=== PATIENT | female | born 1980 | race Caucasian/White ===

== ENCOUNTER 2017-01-16 09:47 | Day surgery (SDC) | payer OTHER ==
[~2017-01-16] VITALS: Ht 163.8 cm; Wt 95.0 kg
[~2017-01-16 09:47] MED LIST: ALBUTEROL0.63 MG/3 IH; ALBUTEROL17 G1 IH; PREDNISONE20 MG PO; PROAIR HFA8.5 GM IH; PROVENTIL,2.5 MG/3 M IH
[2017-01-16 10:35] LABS: BASOPHIL COUNT 0.1 K/uL (0-0.1); EOSINOPHIL (%) 1.4 % (0-5); EOSINOPHIL COUNT 0.2 K/uL (0-0.3); IMMATURE GRANULOCYTE (%) 0.4 % (0.0-0.7); IMMATURE GRANULOCYTE COUNT 0.1 K/uL; INSTRUMENT ABS NEUTROPHIL CT 10.4 K/uL; LYMPHOCYTE COUNT 2.8 K/uL (1.0-2.8); MCH 30.6 PG (29.0-34.0); MCV 90.1 FL (83-99); MEAN PLAT.VOLUME 10.3 uM^3 (9.5-12.4); MONOCYTE (%) 6.9 % (3-12); NEUTROPHIL (%) 71.9 % (45-76); NEUTROPHIL COUNT 10.4 K/uL (1.8-6.4); PLATELET COUNT 255 K/uL (156-360); RBC DIS.WIDTH-CV 11.9 % (11.8-14.6); RBC DIS.WIDTH-SD 39.2 % (39-53); RED BLOOD COUNT 4.44 M/uL (3.80-5.20); WHITE BLOOD COUNT 14.4 K/uL (4.1-10.2)
[2017-01-16 11:09] LABS: CHLORIDE 109 mEq/L (99-109); POTASSIUM 3.7 mEq/L (3.7-5.4); SODIUM 140 mEq/L (136-147)
[2017-01-16 11:12] LABS: GLUCOSE 98 mg/dL (70-99)
[2017-01-16 11:13] LABS: ANION GAP 13 MEQ/L (2-14)
[2017-01-16 11:15] LABS: ALKALINE PHOSPHATASE 67 IU/L (3-129); GFR ESTIMATE (CALCULATED) > 59 mL/min/
[2017-01-16 11:16] LABS: UREA NITROGEN (BUN) 9 mg/dL (9-23)
[2017-01-16 11:19] LABS: LIPASE 19 U/L (1.0-51.0)
[2017-01-16 11:47] LABS: ADD MIUA? YES; BILIRUBIN NEGATIVE; BLOOD SMALL; COLOR YELLOW ((YELLOW)); GLUCOSE (STRIP) NEGATIVE; KETONES NEGATIVE; LEUKOCYTES NEGATIVE; NITRITE NEGATIVE; PROTEIN (STRIP) NEGATIVE; SPECIFIC GRAVITY 1.009 (1.000-1.030); UROBILINOGEN 0.2 MG/DL (0.2-1.0)
[2017-01-16 11:49] LABS: BACTERIA RARE /HPF; EPITHELIAL CELLS RARE /HPF; MUCUS TRACE /LPF; RED BLOOD CELLS 0-5 /HPF (0-5); WHITE BLOOD CELLS 0-5 /HPF (0-5)
[2017-01-16] MEDS ORDERED: ENBREL50 MG/1 ML SC (12:34)
[2017-01-16 16:57] VITALS: BP 111/56
[2017-01-16 19:10] VITALS: BP 107/58
[2017-01-17] VITALS (7 sets, daily range): BP systolic 99–114; BP diastolic 54–66
[2017-01-18 03:55] VITALS: BP 119/70
[2017-01-18 08:00] VITALS: BP 105/55
[2017-01-18] MEDS ORDERED: ZOFRAN ODT4 MG PO (10:54)
[2017-01-18] MEDS ORDERED: NORCO 5/3251 TABLET PO (10:54)
== END 2017-01-18 11:47 | disposition home or self-care (01) ==
LOC: EME 09:47 → SDC 13:30 → 2EASTP 15:09 → 2SOUTH 15:09 → 2EASTP 16:53
PROVIDERS: Emergency Medicine
PROC: 0DTJ0ZZ Resection of Appendix, Open Approach (ICD-10-PCS; principal; 2017-01-16)
DX: K35.80 Unspecified acute appendicitis (principal); J45.909 Unspecified asthma, uncomplicated; Z88.0 Allergy status to penicillin
CPT/HCPCS: 74177; 80053; 81003; 83690; 85025; 88304; 94640; 94640 76; 94799; 99202; 99281; 99285; G0378; J0131; J1170; J1650; J1720; J1885; J2250; J2270; J2405; J2710; J3010; J3480; J7030; J7120; S0020

== ENCOUNTER 2017-02-02 13:25 | Emergency (ER) | payer OTHER ==
[~2017-02-02] VITALS: Ht 167.6 cm; Wt 92.2 kg
[~2017-02-02 13:25] MED LIST changes: +ENBREL50 MG/1 ML SC; +NORCO 5/3251 TABLET PO; +ZOFRAN ODT4 MG PO
[2017-02-02 14:43] LABS: HEMATOCRIT 38.9 % (36.0-46.0); MCH 30.7 PG (29.0-34.0); MCHC 34.4 G/DL (30.0-36.0); MEAN PLAT.VOLUME 10.9 uM^3 (9.5-12.4); PLATELET COUNT 297 K/uL (156-360); RBC DIS.WIDTH-CV 11.9 % (11.8-14.6); RBC DIS.WIDTH-SD 38.8 % (39-53); RED BLOOD COUNT 4.37 M/uL (3.80-5.20); WHITE BLOOD COUNT 13.3 K/uL (4.1-10.2)
[2017-02-02 14:57] LABS: CHLORIDE 107 mEq/L (99-109); SODIUM 138 mEq/L (136-147)
[2017-02-02 14:59] LABS: GLUCOSE 102 mg/dL (70-99)
[2017-02-02 15:00] LABS: ANION GAP 13 MEQ/L (2-14)
[2017-02-02 15:01] LABS: TOTAL BILIRUBIN 0.9 mg/dL (0.0-1.0)
[2017-02-02 15:03] LABS: ALKALINE PHOSPHATASE 71 IU/L (3-129); GFR ESTIMATE (CALCULATED) > 59 mL/min/
[2017-02-02 15:04] LABS: UREA NITROGEN (BUN) 8 mg/dL (9-23)
[2017-02-02 15:15] LABS: QUANTITATIVE HCG < 4.0 MIU/ML
[2017-02-02] MEDS ORDERED: OXYCODONE HCL5 MG PO (15:37)
[2017-02-02 15:43] LABS: ADD MIUA? YES; BILIRUBIN NEGATIVE; BLOOD SMALL; COLOR YELLOW ((YELLOW)); GLUCOSE (STRIP) NEGATIVE; KETONES NEGATIVE; LEUKOCYTES TRACE; NITRITE NEGATIVE; PROTEIN (STRIP) NEGATIVE; UROBILINOGEN 0.2 MG/DL (0.2-1.0)
[2017-02-02 16:00] LABS: BACTERIA NONE SEEN /HPF; EPITHELIAL CELLS 1+ /HPF; MUCUS TRACE /LPF; RED BLOOD CELLS 0-5 /HPF (0-5); UCUL ADDED? NO; WHITE BLOOD CELLS 0-5 /HPF (0-5)
[2017-02-02] MEDS ORDERED: ZOFRAN ODT4 MG PO (18:03)
[2017-02-02] MEDS ORDERED: PERCOCET 5/31 TABLET PO (18:03)
[2017-02-02] MEDS ORDERED: AUGMENTIN875 MG PO (18:03)
[2017-02-02 18:27] VITALS: BP 124/80
== END 2017-02-02 18:28 | disposition home or self-care (01) ==
LOC: EME 13:25
DX: T81.4XXA Infection following a procedure, initial encounter (principal); L02.211 Cutaneous abscess of abdominal wall
CPT/HCPCS: 74177; 80053; 81003; 84702; 85027; 94640; 99281; 99284; J2270; J2405; J7030

== ENCOUNTER 2017-07-05 12:54 | Inpatient (IN) | payer OTHER ==
[~2017-07-05] VITALS: Ht 162.6 cm; Wt 92.5 kg
[~2017-07-05 12:54] MED LIST changes: +AUGMENTIN875 MG PO; +OXYCODONE HCL5 MG PO; +PERCOCET 5/31 TABLET PO
[2017-07-05 13:25] LABS: HEMATOCRIT 41.1 % (36.0-46.0); MCH 30.8 PG (29.0-34.0); MCHC 34.8 G/DL (30.0-36.0); MCV 88.4 FL (83-99); MEAN PLAT.VOLUME 9.9 uM^3 (9.5-12.4); PLATELET COUNT 258 K/uL (156-360); RBC DIS.WIDTH-CV 11.9 % (11.8-14.6); RBC DIS.WIDTH-SD 39.1 % (39-53); RED BLOOD COUNT 4.65 M/uL (3.80-5.20); WHITE BLOOD COUNT 10.2 K/uL (4.1-10.2)
[2017-07-05 13:35] LABS: CHLORIDE 105 mEq/L (99-109); SODIUM 136 mEq/L (136-147)
[2017-07-05 13:37] LABS: GLUCOSE 143 mg/dL (70-99)
[2017-07-05 13:38] LABS: ANION GAP 14 MEQ/L (2-14)
[2017-07-05 13:39] LABS: TOTAL BILIRUBIN 0.8 mg/dL (0.0-1.0)
[2017-07-05 13:41] LABS: ALKALINE PHOSPHATASE 83 IU/L (3-129); GFR ESTIMATE (CALCULATED) > 59 mL/min/
[2017-07-05 13:42] LABS: UREA NITROGEN (BUN) 12 mg/dL (9-23)
[2017-07-05 13:44] LABS: LIPASE 42 U/L (1.0-51.0)
[2017-07-05 13:50] LABS: QUANTITATIVE HCG < 4.0 MIU/ML
[2017-07-05 14:18] LABS: D-DIMER ELISA < 150.00 ng/mLDDU (<230)
[2017-07-05 14:45] LABS: ADD MIUA? YES; BILIRUBIN NEGATIVE; BLOOD SMALL; COLOR YELLOW ((YELLOW)); GLUCOSE (STRIP) NEGATIVE; KETONES 20; LEUKOCYTES NEGATIVE; NITRITE NEGATIVE; PROTEIN (STRIP) 30; SPECIFIC GRAVITY 1.016 (1.000-1.030); UROBILINOGEN 0.2 MG/DL (0.2-1.0)
[2017-07-05 14:51] LABS: BACTERIA NONE SEEN /HPF; EPITHELIAL CELLS RARE /HPF; MUCUS TRACE /LPF; RED BLOOD CELLS 0-5 /HPF (0-5); UCUL ADDED? NO; WHITE BLOOD CELLS 0-5 /HPF (0-5)
[2017-07-05] MEDS ORDERED: SINGULAIR10 MG PO (16:52)
[2017-07-05 20:01] VITALS: BP 129/63
[2017-07-05 23:36] VITALS: BP 132/60
[2017-07-06 07:04] LABS: HEMATOCRIT 33.7 % (36.0-46.0); MCH 32.5 PG (29.0-34.0); MEAN PLAT.VOLUME 10.4 uM^3 (9.5-12.4); PLATELET COUNT 192 K/uL (156-360); RBC DIS.WIDTH-CV 12.4 % (11.8-14.6); RBC DIS.WIDTH-SD 42.4 % (39-53); WHITE BLOOD COUNT 6.7 K/uL (4.1-10.2)
[2017-07-06 07:07] LABS: MCV 92.8 FL (83-99); RED BLOOD COUNT 3.63 M/uL (3.80-5.20)
[2017-07-06 07:45] VITALS: BP 110/57
[2017-07-06 11:14] VITALS: BP 111/67
[2017-07-06 12:54] LABS: ANION GAP 6 MEQ/L (2-14); CHLORIDE 108 MEQ/L (99-109); POTASSIUM 4.4 MEQ/L (3.7-5.4); SAMPLE HEMOLYSIS CHECK 0; SAMPLE ICTERIC CHECK 0; SAMPLE LIPEMIA CHECK 0; SODIUM 141 MEQ/L (136-147); TOTAL BILIRUBIN 0.9 MG/DL (0.0-1.0)
[2017-07-06 13:00] LABS: ALKALINE PHOSPHATASE 85 IU/L (3-129); GFR ESTIMATE (CALCULATED) > 59 mL/min/; UREA NITROGEN (BUN) 9 mg/dL (9-23)
[2017-07-06 13:01] LABS: GLUCOSE 88 mg/dL (70-99)
[2017-07-06 19:10] VITALS: BP 159/88
[2017-07-06 23:29] VITALS: BP 135/82
[2017-07-07] VITALS (8 sets, daily range): BP systolic 119–162; BP diastolic 68–95
[2017-07-07 07:32] LABS: HEMATOCRIT 38.3 % (36.0-46.0); MCH 32.4 PG (29.0-34.0); MCHC 34.7 G/DL (30.0-36.0); MCV 93.4 FL (83-99); MEAN PLAT.VOLUME 10.2 uM^3 (9.5-12.4); PLATELET COUNT 211 K/uL (156-360); RBC DIS.WIDTH-CV 12.5 % (11.8-14.6); RBC DIS.WIDTH-SD 43.2 % (39-53); WHITE BLOOD COUNT 11.1 K/uL (4.1-10.2)
[2017-07-07 07:59] LABS: ALKALINE PHOSPHATASE 98 IU/L (3-129); ANION GAP 8 MEQ/L (2-14); CHLORIDE 104 MEQ/L (99-109); GFR ESTIMATE (CALCULATED) > 59 mL/min/; GLUCOSE 125 mg/dL (70-99); POTASSIUM 4.2 MEQ/L (3.7-5.4); SAMPLE HEMOLYSIS CHECK 0; SAMPLE ICTERIC CHECK 0; SAMPLE LIPEMIA CHECK 0; SODIUM 139 MEQ/L (136-147); UREA NITROGEN (BUN) 5 mg/dL (9-23)
[2017-07-07 09:19] LABS: LIPASE 1974 U/L (1.0-51.0)
[2017-07-08 01:31] LABS: HEMATOCRIT 41.3 % (36.0-46.0); MCHC 33.4 G/DL (30.0-36.0); MCV 92.8 FL (83-99); MEAN PLAT.VOLUME 9.9 uM^3 (9.5-12.4); PLATELET COUNT 234 K/uL (156-360); RBC DIS.WIDTH-CV 12.1 % (11.8-14.6); RBC DIS.WIDTH-SD 41.8 % (39-53); RED BLOOD COUNT 4.45 M/uL (3.80-5.20); WHITE BLOOD COUNT 15.1 K/uL (4.1-10.2)
[2017-07-08 01:39] LABS: CHLORIDE 104 mEq/L (99-109); POTASSIUM 3.9 mEq/L (3.7-5.4); SODIUM 139 mEq/L (136-147)
[2017-07-08 01:41] LABS: GLUCOSE 130 mg/dL (70-99)
[2017-07-08 01:42] LABS: ANION GAP 11 MEQ/L (2-14)
[2017-07-08 01:43] LABS: TOTAL BILIRUBIN 0.8 mg/dL (0.0-1.0)
[2017-07-08 01:45] LABS: ALKALINE PHOSPHATASE 101 IU/L (3-129); GFR ESTIMATE (CALCULATED) > 59 mL/min/
[2017-07-08 01:46] LABS: UREA NITROGEN (BUN) 4 mg/dL (9-23)
[2017-07-08 03:49] VITALS: BP 141/77
[2017-07-08 07:47] VITALS: BP 139/73
[2017-07-08 08:44] LABS: LIPASE 1479 U/L (1.0-51.0)
[2017-07-08 11:39] VITALS: BP 132/76
[2017-07-08 15:56] VITALS: BP 131/68
[2017-07-08 19:28] VITALS: BP 128/67
[2017-07-09 00:03] VITALS: BP 117/62
[2017-07-09 04:10] VITALS: BP 129/72
[2017-07-09 06:26] LABS: HEMATOCRIT 37.4 % (36.0-46.0); MCH 31.6 PG (29.0-34.0); MCHC 33.4 G/DL (30.0-36.0); MCV 94.7 FL (83-99); MEAN PLAT.VOLUME 10.2 uM^3 (9.5-12.4); PLATELET COUNT 187 K/uL (156-360); RBC DIS.WIDTH-CV 12.7 % (11.8-14.6); RED BLOOD COUNT 3.95 M/uL (3.80-5.20); WHITE BLOOD COUNT 16.4 K/uL (4.1-10.2)
[2017-07-09 06:53] LABS: ALKALINE PHOSPHATASE 77 IU/L (3-129); ANION GAP 9 MEQ/L (2-14); CHLORIDE 102 MEQ/L (99-109); DIRECT BILIRUBIN 0.6 mg/dL (0.0-0.3); GFR ESTIMATE (CALCULATED) > 59 mL/min/; GLUCOSE 108 mg/dL (70-99); LIPASE 236 U/L (1.0-51.0); SAMPLE HEMOLYSIS CHECK 0; SAMPLE ICTERIC CHECK 0; SAMPLE LIPEMIA CHECK 0; SODIUM 138 MEQ/L (136-147); UREA NITROGEN (BUN) 4 mg/dL (9-23)
[2017-07-09 06:57] LABS: TOTAL BILIRUBIN 1.4 MG/DL (0.0-1.0)
[2017-07-09 07:44] VITALS: BP 119/65
[2017-07-09 12:08] VITALS: BP 123/65
[2017-07-09 17:29] VITALS: BP 115/58
[2017-07-09 19:57] VITALS: BP 130/65
[2017-07-10 00:08] VITALS: BP 127/66
[2017-07-10 03:37] VITALS: BP 120/61
[2017-07-10 06:45] VITALS: BP 127/70
[2017-07-10 07:14] LABS: HEMATOCRIT 35.8 % (36.0-46.0); MCH 31.6 PG (29.0-34.0); MCHC 33.5 G/DL (30.0-36.0); MCV 94.2 FL (83-99); MEAN PLAT.VOLUME 10.6 uM^3 (9.5-12.4); PLATELET COUNT 218 K/uL (156-360); RBC DIS.WIDTH-CV 12.5 % (11.8-14.6); RBC DIS.WIDTH-SD 43.4 % (39-53); WHITE BLOOD COUNT 17.6 K/uL (4.1-10.2)
[2017-07-10 07:42] LABS: ALKALINE PHOSPHATASE 73 IU/L (3-129); ANION GAP 8 MEQ/L (2-14); CHLORIDE 101 MEQ/L (99-109); GFR ESTIMATE (CALCULATED) > 59 mL/min/; GLUCOSE 99 mg/dL (70-99); LIPASE 56 U/L (1.0-51.0); POTASSIUM 3.8 MEQ/L (3.7-5.4); SAMPLE HEMOLYSIS CHECK 0; SAMPLE ICTERIC CHECK 0; SAMPLE LIPEMIA CHECK 0; SODIUM 137 MEQ/L (136-147); TOTAL BILIRUBIN 0.9 MG/DL (0.0-1.0); UREA NITROGEN (BUN) 4 mg/dL (9-23)
[2017-07-10 09:11] LABS: ADD MIUA? YES; BILIRUBIN NEGATIVE; BLOOD MODERATE; COLOR YELLOW ((YELLOW)); GLUCOSE (STRIP) NEGATIVE; KETONES 5; LEUKOCYTES TRACE; NITRITE NEGATIVE; PROTEIN (STRIP) 30; UROBILINOGEN 0.2 MG/DL (0.2-1.0)
[2017-07-10 09:25] LABS: BACTERIA RARE /HPF; EPITHELIAL CELLS RARE /HPF; MUCUS TRACE /LPF
[2017-07-10 15:51] VITALS: BP 121/63
[2017-07-10 23:10] VITALS: BP 118/60
[2017-07-11 06:55] VITALS: BP 119/60
[2017-07-11 07:04] LABS: HEMATOCRIT 34.6 % (36.0-46.0); MCH 30.8 PG (29.0-34.0); MCHC 32.9 G/DL (30.0-36.0); MCV 93.5 FL (83-99); PLATELET COUNT 221 K/uL (156-360); RBC DIS.WIDTH-CV 12.3 % (11.8-14.6); WHITE BLOOD COUNT 16.9 K/uL (4.1-10.2)
[2017-07-11 07:38] LABS: ANION GAP 7 MEQ/L (2-14); CHLORIDE 99 MEQ/L (99-109); GFR ESTIMATE (CALCULATED) > 59 mL/min/; GLUCOSE 102 mg/dL (70-99); POTASSIUM 3.8 MEQ/L (3.7-5.4); SAMPLE HEMOLYSIS CHECK 0; SAMPLE ICTERIC CHECK 0; SAMPLE LIPEMIA CHECK 0; SODIUM 136 MEQ/L (136-147); UREA NITROGEN (BUN) 7 mg/dL (9-23)
[2017-07-11 15:10] VITALS: BP 125/67
[2017-07-11 23:42] VITALS: BP 126/63
[2017-07-12 07:30] VITALS: BP 122/61
[2017-07-12 07:33] LABS: EOSINOPHIL COUNT 0.2 K/uL (0-0.3); HEMATOCRIT 34.4 % (36.0-46.0); IMMATURE GRANULOCYTE (%) 0.8 % (0.0-0.7); IMMATURE GRANULOCYTE COUNT 0.2 K/uL; INSTRUMENT ABS NEUTROPHIL CT 16.7 K/uL; LYMPHOCYTE COUNT 1.3 K/uL (1.0-2.8); MCH 30.3 PG (29.0-34.0); MCHC 33.1 G/DL (30.0-36.0); MCV 91.5 FL (83-99); MEAN PLAT.VOLUME 10.2 uM^3 (9.5-12.4); MONOCYTE (%) 9.8 % (3-12); NEUTROPHIL (%) 81.7 % (45-76); NEUTROPHIL COUNT 16.7 K/uL (1.8-6.4); PLATELET COUNT 266 K/uL (156-360); RBC DIS.WIDTH-CV 12.2 % (11.8-14.6); RBC DIS.WIDTH-SD 41.1 % (39-53); RED BLOOD COUNT 3.76 M/uL (3.80-5.20); WHITE BLOOD COUNT 20.5 K/uL (4.1-10.2)
[2017-07-12 07:58] LABS: ANION GAP 12 MEQ/L (2-14); CHLORIDE 95 MEQ/L (99-109); GFR ESTIMATE (CALCULATED) > 59 mL/min/; GLUCOSE 98 mg/dL (70-99); POTASSIUM 3.9 MEQ/L (3.7-5.4); SAMPLE HEMOLYSIS CHECK 2; SAMPLE ICTERIC CHECK 0; SAMPLE LIPEMIA CHECK 0; SODIUM 135 MEQ/L (136-147); UREA NITROGEN (BUN) 8 mg/dL (9-23)
[2017-07-12 16:07] VITALS: BP 126/65
[2017-07-13 00:22] VITALS: BP 127/59
[2017-07-13 07:23] VITALS: BP 122/63
[2017-07-13 07:43] LABS: EOSINOPHIL (%) 0.7 % (0-5); EOSINOPHIL COUNT 0.1 K/uL (0-0.3); HEMATOCRIT 32.9 % (36.0-46.0); IMMATURE GRANULOCYTE (%) 1.6 % (0.0-0.7); IMMATURE GRANULOCYTE COUNT 0.3 K/uL; LYMPHOCYTE COUNT 1.4 K/uL (1.0-2.8); MCH 31.5 PG (29.0-34.0); MCHC 34.7 G/DL (30.0-36.0); MCV 90.9 FL (83-99); MEAN PLAT.VOLUME 9.9 uM^3 (9.5-12.4); MONOCYTE (%) 9.5 % (3-12); MONOCYTE COUNT 1.9 K/uL (0-0.8); NEUTROPHIL (%) 80.9 % (45-76); PLATELET COUNT 273 K/uL (156-360); RBC DIS.WIDTH-CV 12.4 % (11.8-14.6); RBC DIS.WIDTH-SD 41.3 % (39-53); RED BLOOD COUNT 3.62 M/uL (3.80-5.20); WHITE BLOOD COUNT 19.8 K/uL (4.1-10.2)
[2017-07-13 08:15] LABS: ANION GAP 11 MEQ/L (2-14); CHLORIDE 94 MEQ/L (99-109); GFR ESTIMATE (CALCULATED) > 59 mL/min/; GLUCOSE 103 mg/dL (70-99); LIPASE 30 U/L (1.0-51.0); POTASSIUM 3.6 MEQ/L (3.7-5.4); SAMPLE HEMOLYSIS CHECK 0; SAMPLE ICTERIC CHECK 0; SAMPLE LIPEMIA CHECK 0; SODIUM 131 MEQ/L (136-147); UREA NITROGEN (BUN) 7 mg/dL (9-23)
[2017-07-13] MEDS ORDERED: PROAIR HFA8.5 GM IH (11:02)
[2017-07-13] MEDS ORDERED: PERCOCET 5/31 TABLET PO (11:02)
[2017-07-13] MEDS ORDERED: LEVAQUIN750 MG PO (11:04)
[2017-07-13] MEDS ORDERED: FLAGYL500 MG PO (11:04)
== END 2017-07-13 12:20 | disposition home or self-care (01) | DRG 417 ==
LOC: EME 12:54 → ENRESERV 17:42 → 2EAST 17:48 → EDOF 17:48 → ENRESERV 19:04 → 2EAST 20:00
PROVIDERS: Hospitalist; Internal Medicine; Surgery
DX: K80.62 Calculus of gallbladder and bile duct with acute cholecystitis without obstruction (principal); K85.10 Biliary acute pancreatitis without necrosis or infection; R18.8 Other ascites; K86.3 Pseudocyst of pancreas; J90 Pleural effusion, not elsewhere classified; J45.20 Mild intermittent asthma, uncomplicated; K57.10 Diverticulosis of small intestine without perforation or abscess without bleeding; L40.50 Arthropathic psoriasis, unspecified; M06.9 Rheumatoid arthritis, unspecified; K42.9 Umbilical hernia without obstruction or gangrene; F50.89 Other specified eating disorder; N28.1 Cyst of kidney, acquired; R74.0 Nonspecific elevation of levels of transaminase and lactic acid dehydrogenase [LDH]; J45.40 Moderate persistent asthma, uncomplicated; K83.8 Other specified diseases of biliary tract; E66.9 Obesity, unspecified; Z68.35 Body mass index [BMI] 35.0-35.9, adult; Z88.0 Allergy status to penicillin; Z79.899 Other long term (current) drug therapy; Z83.3 Family history of diabetes mellitus
CPT/HCPCS: 71020; 71260; 74177; 74181; 74328; 74330; 76705; 80048; 80048 91; 80053; 80170; 81003; 82150 91; 82248; 83605; 83690; 83735; 84100; 84702; 85025; 85027; 85379; 87040; 87081; 87086; 87493; 88304; 90686; 94640; 94640 76; 94760; 94799; 99202; 99281; 99285; C1757; C1769; J0330; J1100; J1170; J1580; J1644; J1885; J2250; J2405; J2710; J2765; J3010; J3370; J7030; J7050; J7120; S0028; S0030; S0073

== ENCOUNTER 2017-07-17 14:47 | Inpatient (IN) | payer OTHER ==
[~2017-07-17] VITALS: Ht 162.6 cm; Wt 89.4 kg
[~2017-07-17 14:47] MED LIST changes: +FLAGYL500 MG PO; +LEVAQUIN750 MG PO; +SINGULAIR10 MG PO
[2017-07-17 15:31] LABS: HEMATOCRIT 36.5 % (36.0-46.0); MCH 30.3 PG (29.0-34.0); MCHC 34.8 G/DL (30.0-36.0); MCV 87.1 FL (83-99); MEAN PLAT.VOLUME 9.9 uM^3 (9.5-12.4); RBC DIS.WIDTH-SD 38.5 % (39-53); RED BLOOD COUNT 4.19 M/uL (3.80-5.20); WHITE BLOOD COUNT 11.2 K/uL (4.1-10.2)
[2017-07-17 15:32] LABS: PLATELET COUNT 542 K/uL (156-360)
[2017-07-17 15:39] LABS: CHLORIDE 98 mEq/L (99-109)
[2017-07-17 15:41] LABS: GLUCOSE 100 mg/dL (70-99)
[2017-07-17 15:42] LABS: ANION GAP 19 MEQ/L (2-14)
[2017-07-17 15:45] LABS: GFR ESTIMATE (CALCULATED) > 59 mL/min/; UREA NITROGEN (BUN) 16 mg/dL (9-23)
[2017-07-17 15:49] LABS: POTASSIUM 2.7 mEq/L (3.7-5.4); SODIUM 141 mEq/L (136-147)
[2017-07-17 16:54] LABS: TOTAL BILIRUBIN 0.5 mg/dL (0.0-1.0)
[2017-07-17 16:55] LABS: ALKALINE PHOSPHATASE 97 IU/L (3-129)
[2017-07-17 16:57] LABS: DIRECT BILIRUBIN 0.2 mg/dL (0.0-0.3)
[2017-07-17 16:58] LABS: LIPASE 153 U/L (1.0-51.0)
[2017-07-17] MEDS ORDERED: TYLENOL REGULA325 MG PO (19:59)
[2017-07-17] MEDS ORDERED: ADVIL200 MG PO (19:59)
[2017-07-17 20:40] LABS: MAGNESIUM 2.2 mg/dL (1.3-2.7)
[2017-07-17 20:54] VITALS: BP 123/68
[2017-07-18] VITALS: BP 115/71
[2017-07-18 03:23] LABS: ADD MIUA? YES; BILIRUBIN NEGATIVE; BLOOD LARGE; COLOR YELLOW ((YELLOW)); GLUCOSE (STRIP) NEGATIVE; KETONES 20; LEUKOCYTES NEGATIVE; NITRITE NEGATIVE; PROTEIN (STRIP) NEGATIVE; UROBILINOGEN 0.2 MG/DL (0.2-1.0)
[2017-07-18 05:27] LABS: BACTERIA RARE /HPF; EPITHELIAL CELLS 1+ /HPF; MUCUS TRACE /LPF; RED BLOOD CELLS TNTC /HPF (0-5)
[2017-07-18 06:20] LABS: EOSINOPHIL (%) 1.7 % (0-5); EOSINOPHIL COUNT 0.2 K/uL (0-0.3); HEMATOCRIT 31.3 % (36.0-46.0); IMMATURE GRANULOCYTE (%) 1.8 % (0.0-0.7); IMMATURE GRANULOCYTE COUNT 0.2 K/uL; LYMPHOCYTE COUNT 1.7 K/uL (1.0-2.8); MCH 31.6 PG (29.0-34.0); MCHC 34.2 G/DL (30.0-36.0); MCV 92.3 FL (83-99); MEAN PLAT.VOLUME 9.9 uM^3 (9.5-12.4); MONOCYTE (%) 5.3 % (3-12); MONOCYTE COUNT 0.6 K/uL (0-0.8); NEUTROPHIL (%) 76.2 % (45-76); PLATELET COUNT 390 K/uL (156-360); RBC DIS.WIDTH-CV 12.4 % (11.8-14.6); RBC DIS.WIDTH-SD 42.1 % (39-53); RED BLOOD COUNT 3.39 M/uL (3.80-5.20); WHITE BLOOD COUNT 11.8 K/uL (4.1-10.2)
[2017-07-18 06:27] LABS: ALKALINE PHOSPHATASE 71 IU/L (3-129); ANION GAP 9 MEQ/L (2-14); GFR ESTIMATE (CALCULATED) > 59 mL/min/; GLUCOSE 95 mg/dL (70-99); SAMPLE HEMOLYSIS CHECK 0; SAMPLE ICTERIC CHECK 0; SAMPLE LIPEMIA CHECK 0; SODIUM 141 MEQ/L (136-147); TOTAL BILIRUBIN 0.3 MG/DL (0.0-1.0); UREA NITROGEN (BUN) 13 mg/dL (9-23)
[2017-07-18 06:38] LABS: CHLORIDE 104 MEQ/L (99-109); POTASSIUM 3.7 MEQ/L (3.7-5.4)
[2017-07-18 07:37] LABS: SPECIFIC GRAVITY 1.072 (1.000-1.030)
[2017-07-18 08:12] VITALS: BP 125/65
[2017-07-18 16:09] VITALS: BP 135/65
[2017-07-19 00:23] VITALS: BP 110/64
[2017-07-19 06:35] LABS: HEMATOCRIT 34.3 % (36.0-46.0); MCH 31.1 PG (29.0-34.0); MCHC 34.1 G/DL (30.0-36.0); MCV 91.2 FL (83-99); MEAN PLAT.VOLUME 9.7 uM^3 (9.5-12.4); PLATELET COUNT 441 K/uL (156-360); RBC DIS.WIDTH-CV 12.6 % (11.8-14.6); RBC DIS.WIDTH-SD 42.1 % (39-53); RED BLOOD COUNT 3.76 M/uL (3.80-5.20); WHITE BLOOD COUNT 9.6 K/uL (4.1-10.2)
[2017-07-19 07:07] LABS: ANION GAP 9 MEQ/L (2-14); CHLORIDE 104 MEQ/L (99-109); GFR ESTIMATE (CALCULATED) > 59 mL/min/; GLUCOSE 85 mg/dL (70-99); LIPASE 137 U/L (1.0-51.0); POTASSIUM 4.1 MEQ/L (3.7-5.4); SAMPLE HEMOLYSIS CHECK 0; SAMPLE ICTERIC CHECK 0; SAMPLE LIPEMIA CHECK 0; SODIUM 140 MEQ/L (136-147); UREA NITROGEN (BUN) 8 mg/dL (9-23)
[2017-07-19 08:00] VITALS: BP 105/67
[2017-07-19] MEDS ORDERED: PERCOCET 5/31 TABLET PO (09:22)
[2017-07-19] MEDS ORDERED: ZOFRAN4 MG PO (09:22)
== END 2017-07-19 11:15 | disposition home or self-care (01) | DRG 439 ==
LOC: EME 14:47 → 5SOUTH 19:56 → EDOF 19:56 → ENRESERV 19:57 → 5SOUTH 20:45
PROVIDERS: Family Medicine; Hospitalist; Physician Assistant
DX: K85.10 Biliary acute pancreatitis without necrosis or infection (principal); K86.3 Pseudocyst of pancreas; E87.6 Hypokalemia; J45.909 Unspecified asthma, uncomplicated; M06.9 Rheumatoid arthritis, unspecified; L40.50 Arthropathic psoriasis, unspecified; Z88.0 Allergy status to penicillin
CPT/HCPCS: 71020; 71275; 80048; 80053; 80076; 81003; 83690; 83735; 84132 91; 85025; 85027; 93005; 94640; 99202; 99281; 99285; J1650; J1956; J2270; J7030; J7120; S0030